=== PATIENT | male | born 2000 | race Caucasian/White ===

== ENCOUNTER 2024-05-09 19:22 | Emergency (ER) | payer OTHER, BC, SELFPAY ==
[2024-05-09 19:23] VITALS: BP 159/68; PULSE 81; RESP 16; TEMP 36.7; O2SAT 98; BMI 31.8
--- NOTE | 2024-05-09 19:32 | EX.ED.UPPERE ---
HPI <Dr. Yefri Anderson MD - Last Filed: 05/09/24 23:33> History of Present Illness Chief Complaint: Laceration Informant: patient Narrative Narrative: Healthy 23-year-old [id number] male had a work related injury to his left middle finger. He states he was using a box knife to cut a zip tie and he accidentally caught his hand. Denies any numbness or tingling. Tetanus Immunization: 5-10 years (Thinks about 5 years ago) [facility] <Dr. Yefri Anderson MD - Last Filed: 05/09/24 23:33> [facility] Medical History (Updated 05/09/24 @ 19:46 by Anh Armstrong) ADHD Anxiety Depression Medical History no medical history no medical history Home Medications ?Medication ?Instructions ?Recorded ?Last Taken ?Type buspirone 5 mg tablet 10 mg PO BID PRN PRN anxiety 05/09/24 Unknown History Allergy/AdvReac Type Severity Reaction Status Date / Time No Known Allergies Allergy Verified 05/09/24 19:26 Social History Smoking Status: Current some day smoker tobacco type: smokeless tobacco ROS <Dr. Yefri Anderson MD - Last Filed: 05/09/24 23:33> ROS ED Constitutional Constitutional ED: Denies chills or fever(s) Musculoskeletal Musculoskeletal: Reports extremity pain; Denies neck pain Integumentary Reports wounds; Denies Abrasions or rash Neurologic Neurologic: Denies paresthesias or weakness EXAM <Dr. Yefri Anderson MD - Last Filed: 05/09/24 23:33> Physical Exam Const Vital Signs: 05/09/24 19:23 Temperature 98.0 F Temperature Source Temporal Pulse Rate 81 Respiratory Rate 16 Blood Pressure 159/68 H Blood Pressure Mean 98 Pulse Ox 98 Oxygen Delivery Method Room Air Positive well nourished and well developed General Appearance ED: well developed and NAD Neck full ROM and supple Back/Spine normal ROM and normal to inspection Extremity Extremity Narrative: 2.5 cm laceration to the dorsum of the proximal phalanx of the left middle finger distal to the MCPJ, it is not in the midline dorsally, it is radial to that, there is subcutaneous tissue visible but no other structures exposed. No active bleeding. Extensor, FDS, FDP all intact. Normal distal neuroexam. No other injuries. No bony tenderness. Neuro oriented x3, no focal motor deficits and no sensory deficits noted Sensorium / Orientation: alert Psych mental status grossly normal and thought process normal Skin Skin Narrative: 2.5 cm curvilinear clean laceration to the dorsum of the left middle finger see above Rashes: no rashes MDM <Dr. Yefri Anderson MD - Last Filed: 05/09/24 23:33> [facility] Narrative Medical decision making narrative: Simple laceration that has not affected function of his finger, and is not grossly contaminated. See the procedure note, supervised physician assistant public defender who repaired the laceration. He was given appropriate work restrictions I do not think he needs an x-ray, I think as long as he keeps this covered he can continue to do his job at the next shift. He was comfortable with that plan. His tetanus was not updated after we discussed this, he thinks his last tetanus was about 5 years ago, if he finds out it was in fact later than that closer to 10 years he should get an update. Procedures <LISE Castro - Last Filed: 05/09/24 20:14> Lacerations Laceration: Length: 2.5 cm Depth: Sub Q Shape: Linear Prep: Chlorhexadine Laceration repair: Irrigated, Lidocaine and Skin sutures Number of Sutures/Jackson: 5 Suture Information: Ethilon, Simple and 4-0 Comment: Laceration was copiously irrigated with saline and cleaned with chlorhexidine. No foreign bodies were seen. Wound bandaged with bacitracin ointment. Discharge Plan Triage Chief Complaint: Laceration ED Provider: Yefri Anderson Dx/Rx/DC Orders Clinical Impression: Laceration of left middle finger w/o foreign body w/o damage to nail Instructions: ED Laceration, Hand: All Closures Prescriptions: No Action buspirone 5 mg tablet 10 mg PO BID PRN PRN (Reason: anxiety) Stand Alone Forms: Work Status Form Primary Care Provider: REBEL RAMIRZE Referrals: [facility]] - 10 Day for suture removal REBEL RAMIREZ DO [Primary Care Provider] - Print Language: Albanian Disposition Disposition: Home, Self Care Discharge Date/Time: 05/09/24 20:46
[2024-05-09] MEDS: BACITRACIN 15 GM Tube 1 APPLIC TOPICAL (19:36)
[2024-05-09] MEDS: Lidocaine 1% (20 ml mdv) 20 ML Vial INFILT (19:37)
== END 2024-05-09 20:46 | disposition home or self-care (01) ==
PROVIDERS: Emergency Provider Emergency Medicine; PCP Student in an Organized Health Care Education/Training Program; Visit Provider Emergency Medicine
DX: S61.213A Laceration without foreign body of left middle finger without damage to nail, initial encounter (principal); Y99.0 Civilian activity done for income or pay; W26.0XXA Contact with knife, initial encounter; Y92.89 Other specified places as the place of occurrence of the external cause; F41.9 Anxiety disorder, unspecified; Z79.899 Other long term (current) drug therapy; F17.220 Nicotine dependence, chewing tobacco, uncomplicated
CPT/HCPCS: 12001; 99283